=== PATIENT | female | born 1995 | race Caucasian/White ===

== ENCOUNTER 2018-03-20 07:17 | Day surgery (SDC) | payer OTHER ==
[2018-03-20] MEDS ORDERED: CEFAZOLIN 2 GM/50 ML (PMX) 50 ML IVPB (08:30)
[2018-03-20] MEDS ORDERED: FENTAnyl 50 MCG/ML VIAL (09:57)
[2018-03-20] MEDS ORDERED: SUGAMMADEX SODIUM 200 MG/2 ML VIAL IV (10:26)
[2018-03-20] MEDS ORDERED: ROCURONIUM 50 MG INJ (10:26)
[2018-03-20] MEDS ORDERED: CEFAZOLIN 1 GM INJ (10:26)
[2018-03-20] MEDS ORDERED: SUCCINYLCHOLINE CHLORIDE 100 MG/5 ML SYG IV (10:26)
[2018-03-20] MEDS ORDERED: PROPOFOL 20 ML (10:26)
[2018-03-20] MEDS ORDERED: LIDOCAINE 100 MG SYRINGE (10:26)
[2018-03-20] MEDS: LIDOCAINE 2% (MDV) 20 ML INJ (10:32)
[2018-03-20] MEDS: POLYMYXIN/BACITRACIN 1L IRRIG (10:33)
[2018-03-20] MEDS ORDERED: METOCLOPRAMIDE 10 MG INJ IV (11:30)
[2018-03-20] MEDS ORDERED: ONDANSETRON 4 MG INJ IV (11:30)
[2018-03-20] MEDS ORDERED: DIPHENHYDRAMINE 50 MG INJ IV (11:30)
[2018-03-20] MEDS ORDERED: MEPERIDINE 25 MG INJ IV (11:30)
[2018-03-20] MEDS ORDERED: FENTAnyl 50 MCG/ML VIAL IV ×2 (11:30)
[2018-03-20] MEDS ORDERED: HYDROmorphONE (0.2 MG/ML) 10ML SYG IV ×2 (11:30)
[2018-03-20] MEDS: BUPIVACAINE 0.5% (SDV) 30 ML INJ (11:38)
== END 2018-03-20 14:49 | disposition home or self-care (01) ==
LOC: SDS 07:17
DX: S92.412D Displaced fracture of proximal phalanx of left great toe, subsequent encounter for fracture with routine healing (principal); W20.8XXD Other cause of strike by thrown, projected or falling object, subsequent encounter
CPT/HCPCS: 28505; 73660; 88304